=== PATIENT | female | born 2000 ===

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

== ENCOUNTER 2022-05-21 10:33 | Inpatient (IN) ==
[2022-05-21] MEDS ORDERED: CARBOPROST TROMETHAMINE 250 MCG/ML AMP IM PRN (11:53)
[2022-05-21] MEDS ORDERED: FAMOTIDINE 20 MG/2 ML VIAL IV ONE (11:53)
[2022-05-21] MEDS ORDERED: TRANEXAMIC ACID 1,000 MG in SODIUM CHLORIDE 0.9% 100 ML IV PRN (11:53)
[2022-05-21] MEDS ORDERED: miSOPROStoL 200 MCG TABLET RECTAL PRN (11:53)
[2022-05-21] MEDS ORDERED: METHYLERGONOVINE 0.2 MG/1 ML AMP IM PRN (11:53)
[2022-05-21] MEDS ORDERED: CLINDAMYCIN INJ 900 MG/50 ML PREMIX IV ONE (11:53)
[2022-05-21] MEDS ORDERED: CITRIC ACID/SODIUM CITRATE 30 ML UDCUP PO ONE (11:53)
[2022-05-21] MEDS ORDERED: OXYTOCIN/LR 20 UNIT/1,000 ML BAG IV ONE ×3 (11:53→16:30)
[2022-05-21] MEDS ORDERED: OXYTOCIN 10 UNIT/ML VIAL IM ONE (11:55)
[2022-05-21] MEDS ORDERED: OXYTOCIN 30 UNIT in DEXTROSE 5% LACTATED RINGERS 1,000 ML IV ONE (11:55)
[2022-05-21] MEDS ORDERED: LACTATED RINGERS 1,000 ML IV SCH ×2 (12:00→16:30)
[2022-05-21] MEDS ORDERED: OXYTOCIN/LR 30 UNIT/1,000 ML BAG IV ONE (12:30)
[2022-05-21 12:35] LABS: Basophils % 0.2 % (0.0-0.8); Eosinophils % 0.4 % (0.00-10.9); Hematocrit 28.1 VOL% (35.7-47.0); Immature Granulocytes % 0.9 %; Immature Granulocytes Absolute 0.08 #; Lymphocytes # 2.3 10*3/uL (1.4-4.0); Lymphocytes % 24.9 % (21.3-54.2); Mean Corpuscular Volume 74.3 FL (87-102); Mean Platelet Volume 10.4 FL (9.6-12.0); Monocytes # 0.5 10*3/uL (0.11-0.8); Monocytes % 5.4 % (1.7-12.7); Neutrophils % 68.2 % (38.7-73.9); Platelet Count 267 T/CUMM (130-400); Red Blood Count 3.78 MC/CUMM (3.8-5.5); Red Cell Distribution Width 14.5 % (9.3-17.3); White Blood Count 9.2 T/CUMM (4-12)
[2022-05-21 12:53] LABS: Albumin 2.3 G/DL (3.4-5.0); Bilirubin,Total 0.4 MG/DL (0.20-1.00); Osmolality,Calculated 277.3 MOS/KG (273-304); Potassium 3.9 MMOL/L (3.5-5.1); Total Protein 6.5 G/DL (6.4-8.2)
[2022-05-21 12:58] LABS: Anisocytosis 1+; Platelet Estimate Normal
[2022-05-21] MEDS ORDERED: miSOPROStoL 200 MCG TABLET ONE (13:04)
[2022-05-21] MEDS ORDERED: TRANEXAMIC ACID 1,000 MG/10 ML VIAL ONE (13:04)
[2022-05-21] MEDS ORDERED: SODIUM CHLORIDE 0.9% 0 ML IV ONE (13:05)
[2022-05-21] MEDS ORDERED: METHYLERGONOVINE 0.2 MG/1 ML AMP ONE (13:05)
[2022-05-21] MEDS ORDERED: CARBOPROST TROMETHAMINE 250 MCG/ML AMP IM ONE (13:06)
[2022-05-21] MEDS ORDERED: ONDANSETRON 4 MG/2 ML VIAL ONE (14:02)
[2022-05-21] MEDS ORDERED: BUPIVACAINE SPINAL 0.75% 2 ML AMP SPINAL ONE (14:02)
[2022-05-21] MEDS ORDERED: buprenorphine HCL 0.3 MG/ML VIAL ONE (14:02)
[2022-05-21] MEDS ORDERED: fentaNYL 100 MCG/2 ML VIAL ONE (14:58)
[2022-05-21] MEDS ORDERED: KETOROLAC 30 MG/1 ML VIAL ONE (15:01)
[2022-05-21] MEDS ORDERED: propofoL 200 MG/20 ML VIAL IV ONE (15:01)
[2022-05-21 15:14] LABS: Cord Arterial Blood HCO3 21.5 MMOL/L
[2022-05-21 15:16] LABS: Cord Venous Blood HCO3 22.3 MMOL/L; Cord Venous Blood PCO2 44.7 MMHG; Cord Venous Blood PO2 35.2
[2022-05-21 15:32] LABS: Mucus,Urine Occasional /LPF (Occasional); RBC,Urine 1 /HPF (0-4)
[2022-05-21 15:36] LABS: Bilirubin,Urine Negative (Negative); Blood, Urine Negative (Negative); Glucose,Urine (UA) Negative (Negative); Ketones,Urine Negative (Negative); Nitrite,Urine Negative (Negative); Protein,Urine Trace mg/dL (Negative); Urine Appearance Clear (Clear); Urine Color Yellow (Yellow); Urine Urobilinogen 0.2 eU/dL (<2.0); Urine pH 6.5 (4.5-8.0)
[2022-05-21] MEDS ORDERED: IBUPROFEN 800 MG TABLET PO PRN (15:53)
[2022-05-21] MEDS ORDERED: ACETAMINOPHEN 325 MG TABLET PO PRN (15:53)
[2022-05-21] MEDS ORDERED: MAGNESIUM HYDROXIDE SUSP 30 ML UDCUP PO PRN (15:53)
[2022-05-21] MEDS ORDERED: SIMETHICONE CHEW 80 MG TABLET PO PRN (15:53)
[2022-05-21] MEDS ORDERED: ONDANSETRON 4 MG/2 ML VIAL IV PRN (15:53)
[2022-05-21] MEDS ORDERED: RHO(D) IMMUNE GLOBULIN 300 MCG SYRINGE IM ONE (16:30)
[2022-05-21] MEDS: ACETAMINOPHEN 500 MG TABLET PO SCH (18:52)
[2022-05-21] MEDS ORDERED: diphenhydrAMINE 50 MG/1 ML VIAL IV PRN (19:02)
[2022-05-21] MEDS ORDERED: hydrOXYzine HCL 25 MG/1 ML VIAL IM PRN (19:02)
[2022-05-21] MEDS ORDERED: PROMETHAZINE 25 MG/1 ML VIAL IM ONE (19:30)
[2022-05-21] MEDS ORDERED: ONDANSETRON 4 MG/2 ML VIAL IV ONE (19:30)
[2022-05-21] MEDS: DOCUSATE SODIUM 100 MG CAPSULE PO SCH (20:45)
[2022-05-21] MEDS: KETOROLAC 30 MG/1 ML VIAL IV SCH (21:32)
[2022-05-21] MEDS: CLINDAMYCIN INJ 900 MG/50 ML PREMIX IV SCH (22:43)
[2022-05-22 00:20] LABS: Basophils % 0.2 % (0.0-0.8); Eosinophils % 0.2 % (0.00-10.9); Hematocrit 24.7 VOL% (35.7-47.0); Hemoglobin 7.8 GM/DL (12.0-16.0); Immature Granulocytes % 0.5 %; Immature Granulocytes Absolute 0.06 #; Lymphocytes # 2.4 10*3/uL (1.4-4.0); Lymphocytes % 19.6 % (21.3-54.2); Mean Corpuscular HGB Conc 31.6 GM/DL (32-36); Mean Corpuscular Volume 75.1 FL (87-102); Mean Platelet Volume 10.8 FL (9.6-12.0); Monocytes # 0.6 10*3/uL (0.11-0.8); Monocytes % 4.8 % (1.7-12.7); Neutrophils % 74.7 % (38.7-73.9); Platelet Count 236 T/CUMM (130-400); Red Blood Count 3.29 MC/CUMM (3.8-5.5); Red Cell Distribution Width 14.4 % (9.3-17.3); White Blood Count 12.4 T/CUMM (4-12)
[2022-05-22] MEDS: ACETAMINOPHEN 500 MG TABLET PO SCH ×3 (00:37→13:15)
[2022-05-22] MEDS: KETOROLAC 30 MG/1 ML VIAL IV SCH ×2 (04:01→08:34)
[2022-05-22 05:47] LABS: Basophils # 0.1 10*3/uL (0.0-0.2); Basophils % 0.5 % (0.0-0.8); Eosinophils % 0.4 % (0.00-10.9); Hematocrit 22.5 VOL% (35.7-47.0); Hemoglobin 7.1 GM/DL (12.0-16.0); Immature Granulocytes % 0.4 %; Immature Granulocytes Absolute 0.04 #; Lymphocytes # 3.2 10*3/uL (1.4-4.0); Lymphocytes % 31.9 % (21.3-54.2); Mean Corpuscular HGB Conc 31.6 GM/DL (32-36); Mean Corpuscular Volume 75.8 FL (87-102); Mean Platelet Volume 10.4 FL (9.6-12.0); Monocytes # 0.6 10*3/uL (0.11-0.8); Monocytes % 5.7 % (1.7-12.7); Neutrophils % 61.1 % (38.7-73.9); Platelet Count 209 T/CUMM (130-400); Red Blood Count 2.97 MC/CUMM (3.8-5.5); Red Cell Distribution Width 14.5 % (9.3-17.3); White Blood Count 10.1 T/CUMM (4-12)
[2022-05-22] MEDS: CLINDAMYCIN INJ 900 MG/50 ML PREMIX IV SCH (06:17)
[2022-05-22] MEDS ORDERED: SODIUM CHLORIDE 0.9% 1,000 ML IV PRN ×3 (07:00→07:10)
[2022-05-22] MEDS: DOCUSATE SODIUM 100 MG CAPSULE PO SCH ×2 (09:00→21:45)
[2022-05-22] MEDS ORDERED: ENOXAPARIN 40 MG/0.4 ML SYRINGE SUBCUT SCH (09:00)
[2022-05-22] MEDS: METOCLOPRAMIDE 10 MG TABLET PO SCH ×2 (09:00→21:45)
[2022-05-22] MEDS: FERROUS SULFATE 325 MG TABLET PO SCH ×2 (09:00→21:45)
[2022-05-22] MEDS: MULTIVITAMIN (PRENATAL) TABLET PO SCH (09:00)
[2022-05-22 18:02] LABS: Basophils % 0.2 % (0.0-0.8); Eosinophils # 0.1 10*3/uL (0.0-0.87); Eosinophils % 0.5 % (0.00-10.9); Hematocrit 31.8 VOL% (35.7-47.0); Hemoglobin 10.1 GM/DL (12.0-16.0); Immature Granulocytes % 0.7 %; Immature Granulocytes Absolute 0.07 #; Lymphocytes # 2.9 10*3/uL (1.4-4.0); Lymphocytes % 28.6 % (21.3-54.2); Mean Corpuscular HGB Conc 31.8 GM/DL (32-36); Mean Corpuscular Volume 78.3 FL (87-102); Mean Platelet Volume 10.7 FL (9.6-12.0); Monocytes # 0.7 10*3/uL (0.11-0.8); Monocytes % 6.8 % (1.7-12.7); Neutrophils % 63.2 % (38.7-73.9); Platelet Count 252 T/CUMM (130-400); Red Blood Count 4.06 MC/CUMM (3.8-5.5); Red Cell Distribution Width 16.4 % (9.3-17.3)
[2022-05-23] MEDS: METOCLOPRAMIDE 10 MG TABLET PO SCH ×2 (05:49→13:50)
[2022-05-23 07:11] VITALS: BP 123/69
[2022-05-23] MEDS: FERROUS SULFATE 325 MG TABLET PO SCH (08:00)
[2022-05-23] MEDS: MULTIVITAMIN (PRENATAL) TABLET PO SCH ×2 (08:00→09:13)
[2022-05-23] MEDS: DOCUSATE SODIUM 100 MG CAPSULE PO SCH (08:00)
[2022-05-23] MEDS ORDERED: DIPH/TET/ACEL PERT BOOSTER VACCINE 0.5 ML VIAL IM ONE (12:00)
== END 2022-05-23 13:18 | disposition home or self-care (01) | DRG 540 ==
LOC: N.LD 10:33 → N.OB 19:45
PROVIDERS: ADMIT Obstetrics & Gynecology; ATTEND Obstetrics & Gynecology
PROC: LDCSECT (ICD-10-PCS; 2022-05-21 13:00)